=== PATIENT | male | born 1955 | race Caucasian/White ===

== ENCOUNTER 2023-09-27 17:23 | Emergency (ER) | payer OTHER ==
[~2023-09-27] VITALS: Ht 162.6 cm; Wt 88.0 kg
[2023-09-27 17:25] VITALS: O2SAT 94
[2023-09-27] MEDS: TETANUS, DIPHTHERIA, PERTUSSIS VAC/PF 0.5ML (>10YR OLD) IM ONE (17:30)
[2023-09-27] MEDS: LIDOCAINE HCL 1% 20ML VIAL (Pyxis) INJ INFIL ONE (17:30)
[2023-09-27] MEDS: BACITRACIN ZINC OINT UDPKT TOP ONE (17:30)
[2023-09-27 19:30] VITALS: BP 132/87; PULSE 84; RESP 18; TEMP 98.2
== END 2023-09-27 19:32 | disposition home or self-care (01) ==
LOC: ER 17:23
DX: S51.019A Laceration without foreign body of unspecified elbow, initial encounter (principal); S16.1XXA Strain of muscle, fascia and tendon at neck level, initial encounter; E78.00 Pure hypercholesterolemia, unspecified; V49.49XA Driver injured in collision with other motor vehicles in traffic accident, initial encounter; Y93.89 Activity, other specified; Y92.89 Other specified places as the place of occurrence of the external cause; Y99.8 Other external cause status
CPT/HCPCS: 99284; 70450; 72125; 90715; 90471; J3490